=== PATIENT | male | born 1990 ===

== ENCOUNTER 2024-03-12 08:16 | Outpatient (AMB) | payer OTHER, SELFPAY ==
[2024-03-12 08:17] VITALS: BP 138/100; PULSE 88; TEMP 36.9; O2SAT 96
--- NOTE | 2024-03-12 08:17 | AM.OFFWIN_ITS ---
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 Patient Tobacco Use Status: Current everyday Tobacco user Allergies No Known Allergies Allergy (Verified 03/12/24 08:19) Do you need a note to return to daycare/school/sports/work: No HPI HPI Comments History of Present Illness Details The patient is a 33-year-old male presenting with a persistent cough and shortness of breath. The cough began approximately 4 days ago and has progressively worsened. It is occasionally productive with expectoration, though the patient does not note specific sputum characteristics. Accompanying symptoms include nasal congestion that developed more prominently overnight before the visit and bilateral ear pressure that started the morning of the visit. The patient denies any fever, though he reports generalized body aches without feeling febrile. There is no history of asthma, but the patient is an active smoker, which he believes may contribute to the symptoms. He has not undergone COVID testing at home. No [id number]-[id number] medications have been used recently, though he did use DayQuil two weeks prior during a period of wellness. Notably, there has been exposure to individuals with pneumonia in the patient?s immediate environment. He expresses concern about a possible bacterial infection, indicating an interest in antibiotic treatment if necessary. However, there has been no medical evaluation or testing until this urgent care visit. [facility] Social History Patient Tobacco Use Status: Current everyday Tobacco user Physical Exam Vital Signs: Last Vital Signs Temp 98.4 F 03/12/24 08:17 Pulse 88 03/12/24 08:17 BP 138/100 H 03/12/24 08:17 Pulse Ox 96 03/12/24 08:17 Oxygen Delivery Method Room Air 03/12/24 08:17 General: Cooperative, healthy appearing, comfortable and no acute distress Orientation/consciousness: Patient oriented x3 Limitations: No limitations Head: Normal to inspection Ears: Hearing grossly normal bilaterally, external ears normal and TM's normal bilaterally Nose: Normal external nose present, Normal nares present and No nasal discharge present Face and sinus: Normal facial exam and Sinuses tender Mouth: Normal oral and palatal mucosa present and moist mucous membranes Throat: Yes tonsils normal, Yes uvula midline. Posterior oropharynx erythema Eyes: Appearance normal, both eyes and all related structures Neck: Normal visual inspection Respirtory: Clear to auscultation bilaterally. Normal respiratory effort, able to speak in complete sentences, Actively coughing, no respiratory distress, not tachypneic, no tripod positioning and no use of accessory muscles Cardiovascular: Regular rate and rhythm. Normal S1 and S2 Skin: No rashes or lesions noted Neuro: Patient oriented x3 Extremities: Normal to inspection and Yes no clubbing, cyanosis or edema Assessment & Plan Assessment & Plan (1) URI (upper respiratory infection): Code(s): J06.9 - Acute upper respiratory infection, unspecified Qualifiers: URI type: unspecified URI Qualified Code(s): J06.9 - Acute upper respiratory infection, unspecified Plan: - For the productive cough and shortness of breath, I suspect a viral upper respiratory infection exacerbated by smoking. I will order tests for influenza, COVID-19, and RSV. The results will be communicated to the patient once available. - I advised the patient to start using an albuterol inhaler to manage episodes of shortness of breath, with instructions on proper usage for optimal effectiveness. It may cause transient jitteriness. - Prescribed Tessalon Perles for symptomatic relief of the cough, with directions to use primarily at night to aid sleep. - Recommended [id number]-[id number] Flonase nasal spray for nasal congestion relief, providing specific guidance on its correct administration. - No chest X-ray is deemed necessary at this time given the clinical presentation. - The patient was encouraged to abstain from smoking to prevent exacerbation of respiratory symptoms. Orders: Orders SARS-CoV2/FLU/RSV Today J06.9 - Acute upper respiratory infection, unspecified Medications: New albuterol sulfate 90 mcg/actuation 2 puffs inhalation Q6H PRN 8.5 grams 0RF troy rtness of breath or wheezing or cough benzonatate 200 mg PO TID PRN 14 caps 0RF cough Coding Level of Care Code New Pt Level 3 (97014) Diagnoses Upper respiratory tract infection, unspecified type J06.9 URI type: unspecified URI
== END 2024-03-12 09:02 | disposition home or self-care (01) ==
PROVIDERS: Visit Provider Physician Assistant
DX: J06.9 Acute upper respiratory infection, unspecified (principal)

== ENCOUNTER 2024-03-12 08:16 | Outpatient (REF) | payer OTHER, SELFPAY ==
[2024-03-12 13:18] LABS: Influenza A PCR NEGATIVE (Negative); Influenza B PCR NEGATIVE (Negative); Resp Syncy Virus RNA Qual PCR NEGATIVE (Negative); SARS COV2 PCR INHOUSE NEGATIVE (Negative)
== END 2024-03-12 08:17 | disposition home or self-care (01) ==
LOC: HO.LAB 08:16
PROVIDERS: Visit Provider Physician Assistant
DX: J06.9 Acute upper respiratory infection, unspecified (principal)
CPT/HCPCS: 0241U; 99202

== ENCOUNTER 2025-01-26 08:55 | Outpatient (AMB) | payer OTHER, SELFPAY ==
--- NOTE | 2025-01-26 09:03 | AM.OFFWIN_ITS ---
Intake Vital Signs 01/26/25 09:08 Height 5 ft 7 in Weight 194 lb BMI 30.4 BP 130/88 Blood Pressure Location Lt brachial Position Sitting Pulse 80 Pulse Source Pulse Oximeter Temp 98.2 F Temp Source Oral Pulse Oximetry (%) 97 Oxygen Delivery Method Room Air Intake Visit Reasons: EP-lt eye issues Patient Tobacco Use Status: Current everyday Tobacco user Information Interpreted: non-clinical & clinical Allergies No Known Allergies Allergy (Verified 01/26/25 09:09) Do you need a note to return to daycare/school/sports/work: No HPI HPI Comments History of Present Illness Details History of Present Illness - The patient is a 34-year-old male pres enting with left eye pain and redness. - The eye pain began on Sunday morning , with the patient initially attributing it to contact lens use. 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 - The patient removed his contact lenses upon noticing the discomfort, but symptoms persisted. - The patient describes the eye as swoll en with some tearing, though not severe. - The patient has switched to wearing gl asses temporarily. - He has been light sensitive. - He denies visual changes, eye trauma, cold symptoms, GOMEZ, dizziness, or right eye pain. Physical Exam General: Cooperative, healthy appearing, comfortable, no acute distress and well developed Orientation: Patient oriented x3 Limitations: No limitations Head: Normal to inspection Eyes: Appearance abnormal. Erythema to the left sclera and conjunctiva. Tearing noted, no crusting noted. PERRLA, EOMI. No hordeolum noted. Respiratory: Normal respiratory effort and able to speak in complete sentences. Clear to auscultation bilaterally Cardiovascular: Regular rate and rhythm. Normal S1 and S2 Neuro: Patient oriented x3 Patient was informed and verbally consented to the use of an ambient scribe for clinic note documentation during this visit. [facility] Social History Patient Tobacco Use Status: Current everyday Tobacco user Physical Exam Vital Signs: Last Vital Signs Temp 98.2 F 01/26/25 09:08 Pulse 80 01/26/25 09:08 BP 130/88 01/26/25 09:08 Pulse Ox 97 01/26/25 09:08 Oxygen Delivery Method Room Air 01/26/25 09:08 BMI result Body Mass Index 30.4 Office Procedures Fluorescein eye exam Details: Applied drops to the left eye. Flourescein dye applied to the left eye. Small puncture of uptake noted on the cornea. Procedure was well tolerated, no complications noted. Assessment & Plan Assessment & Plan (1) Corneal abrasion: Code(s): S05.00XA - Injury of conjunctiva and corneal abrasion without foreign body, unspecified eye, initial encounter Qualifiers: Encounter type: initial encounter Laterality: left Qualified Code(s): S05.02XA - Injury of conjunctiva and corneal abrasion without foreign body, left eye, initial encounter Plan Most likely abrasion vs conjunctivitis vs scleritis flourescein dye test done in the office today plan - Prescribed Ciprofloxacin ophthalmic drops for 4-5 days to prevent infection and promote healing. - Advised to avoid contact lens use until symptoms resolve and healing is confirmed. - Recommended follow-up if symptoms persist or worsen. Orders: Orders AMB Fluorescein eye exam Today S05.01XA - Injury of conjunctiva and corneal abrasion without foreign body, right eye, initial encounter Medications: New ciprofloxacin HCl 0.3% 1 - 2 drops into the right eye four times a day 5 mL 0RF 5 days Coding Level of Care Code Est Pt Level 3 (52115) Diagnoses Abrasion of left cornea, initial encounter S05.02XA Encounter type: initial encounter Laterality: left
[2025-01-26 09:08] VITALS: BP 130/88; PULSE 80; TEMP 36.8; O2SAT 97; BMI 30.4
== END 2025-01-26 09:53 | disposition home or self-care (01) ==
PROVIDERS: Visit Provider Physician Assistant Medical
DX: S05.02XA Injury of conjunctiva and corneal abrasion without foreign body, left eye, initial encounter (principal)

== ENCOUNTER → 2025-01-26 08:55 | Outpatient (BNVA) | payer OTHER, SELFPAY | PROVIDERS: Visit Provider Physician Assistant Medical | DX: S05.02XA Injury of conjunctiva and corneal abrasion without foreign body, left eye, initial encounter (principal); X58.XXXA Exposure to other specified factors, initial encounter; Y93.9 Activity, unspecified; Y92.9 Unspecified place or not applicable; Y99.9 Unspecified external cause status | CPT/HCPCS: 99212 ==